=== PATIENT | male | born 1985 | race African-American/Black ===

== ENCOUNTER 2019-10-30 13:20 | Emergency (ER) | payer MEDICAID ==
[~2019-10-30] VITALS: Ht 177.8 cm; Wt 92.1 kg
[2019-10-30 13:38] VITALS: Ht 177.8 cm; Wt 92.1 kg
[2019-10-30 14:45] VITALS: BP 154/55
== END 2019-10-30 14:45 | disposition home or self-care (01) ==
LOC: ED 13:20
DX: S90.812D Abrasion, left foot, subsequent encounter (principal); J45.909 Unspecified asthma, uncomplicated; I10 Essential (primary) hypertension; Z88.0 Allergy status to penicillin; X58.XXXD Exposure to other specified factors, subsequent encounter
CPT/HCPCS: 82962